=== PATIENT | female | born 1965 | race Caucasian/White ===

== ENCOUNTER → 2017-12-02 16:44 | Outpatient (CLI) | payer OTHER, SELFPAY ==
[2017-12-08 15:22] LABS: HPV Reflexed? NOT INDICATED
== END ==
PROVIDERS: Visit Provider Obstetrics & Gynecology
DX: Z12.4 Encounter for screening for malignant neoplasm of cervix (principal)
CPT/HCPCS: 88175; G0145

== ENCOUNTER → 2020-12-07 | Outpatient (CLI) | payer OTHER, SELFPAY ==
--- NOTE | 2020-12-07 | FLU_PTH ---
PATIENT: LISA DELAROSA LOC: [facility] U#:[id number] AGE/SX: 55/F ROOM: RE12/07/[address]: Dr. Dolores Guy MD : 1965 BED: DIS: 12/07/2020 SPEC #: [id number] RECD: 12/07/20 16:48 STATUS: STEPHANIE SHERIFF #: [id number] ARELIS: 12/07/20 00:[address]: Dolores Guy DEPT: CYTOLOGY RECD BY: Anthony Perez Tissues: A - Thyroid gland, NOS B - Thyroid gland, NOS Procedures: Special Stain Group II Surgery Specimen Level IV Cytospin Fluid HEADER OPERATION: US FNA of left thyroid PRE-OP DIAGNOSIS: Left thyroid nodule TISSUE SUBMITTED: A. Left thyroid fluid, B. Left thyroid slides DIAGNOSIS CYTOLOGY A. Fine needle aspiration, left thyroid fluid (cytospin and cell block): Negative for malignant cells. See comment. B. Fine needle aspiration, left thyroid nodule (smears): Adequate for evaluation. Negative, consistent with benign colloid nodule. AM:krystina 12/10/2020 COMMENT A. The specimen primarily contains blood with rare benign follicular cells. Immediate cytologic evaluation to determine adequacy is not applicable. CYTOLOGY STUDY Slides are reviewed. CYTOLOGY GROSS A. Received is 30 ml of cloudy brown fluid labeled with the patient's name and and designated per the requisition as left thyroid. Submitted for cytology preparation including cell block. B. Received are 6 smears labeled with the patient's name and designated per the requisition as left thyroid. Submitted for staining. / cc 12/07/20 TC:5 CPT: 10651, 54997, 89138
== END | disposition home or self-care (01) ==
PROVIDERS: Referring Provider Surgery; Visit Provider Surgery
DX: E04.1 Nontoxic single thyroid nodule (principal)
CPT/HCPCS: 88108; 88305; 88313

== ENCOUNTER → 2020-12-10 | Outpatient (CLI) | payer OTHER, SELFPAY | END | disposition home or self-care (01) | LOC: LABSPEC 07:48 | PROVIDERS: Visit Provider Surgery | DX: R69 Illness, unspecified (principal) ==

== ENCOUNTER 2021-07-12 15:32 | Observation (INO) | payer OTHER, SELFPAY ==
[2021-07-12] VITALS (11 sets, daily range): BP systolic 124–157; BP diastolic 74–90; PULSE 76–96; RESP 14–16; TEMP 36.1–37.1; O2SAT 90–98; BMI 31.6
--- NOTE | 2021-07-12 | THYROID_PTH ---
PATIENT: LISA DELAROSA LOC: [facility] U#:[id number] AGE/SX: 55/F [place]OM[place] [facility] RE07/12/[address]: Dr. Jg Zurita MD : 1965 BED: 1 DIS: 07/13/2021 SPEC #: [id number] RECD: 07/12/21 14:17 STATUS: STEPHANIE REMallory #: [id number] ARELIS: 07/12/21 00:[address]: Jg Zurita DEPT: SURGICAL PATHOLOGY RECD BY: Corin Grewal ENTERED: 07/12/21 15:15 SP TYPE: THYROID OTHR DR: Dr. Gordon Dumont MD Tissues: A - Thyroid gland, NOS B - Lymph node, NOS Procedures: Decalcification bone/plaque Frozen Section (charge) Surgery Specimen Level IV Surgery Specimen Level V HEADER OPERATION: Thyroid lobectomy PRE-OP DIAGNOSIS: Left thyroid nodule TISSUE SUBMITTED: A ? Left lobe of thyroid, FS, B ? Central compartment lymph node FROZEN SECTION DIAGNOSIS A. Left lobe of thyroid, lobectomy: Colloid nodule with fibrosis and calcification. DEVENDRA:krystina 07/12/2021 MICROSCOPIC DIAGNOSIS A. Left lobe of thyroid, lobectomy: Colloid nodule with cystic changes, fibrosis and calcification (4.3 cm in greatest dimension). Chronic lymphocytic thyroiditis. One benign lymph node. B. Central compartment lymph node, biopsy: One benign lymph node with reactive changes. DEVENDRA:krystina 07/16/2021 COMMENT Please make reference to previous specimen ([id number]) fine needle aspiration, left thyroid nodule with diagnosis of negative, consistent with benign colloid nodule. MICROSCOPIC DESCRIPTION Slides are reviewed. GROSS DESCRIPTION A - Received fresh for frozen section diagnosis labeled with the patient's name is a specimen designated left lobe thyroid. The specimen consists of a thyroid lobectomy specimen weighing 19.9 gm and measuring 4 x 4.5 x 2.2 cm. External surface is inked black and isthmic resection margin is inked yellow. Sections reveal a nodule occupying most of the specimen measuring 4.3 x 3 x 2 cm. Sections of this nodule reveal focal cystic changes, fibrosis and it cuts with gritty sensation consistent with focal calcification. A section from the thyroid nodule is submitted for frozen section diagnosis. The entire specimen is submitted in 15 cassettes as follows: 1 - frozen section, 2-15 - rest of the specimen (2?containing most superior inferior portion, 14 containing most inferior portion and 15 containing portion of thyroid lobe with isthmic resection margin). Sections are submitted after decalcification. B - Received in fixative is one container labeled with the patient's name and designated central compartment lymph node. The specimen consists of a piece of barrera soft tissue measuring 1 x 1 x 0.5 cm. The specimen is bisected and submitted entirely in one cassette. / DEVENDRA:krystina 07/15/2021 TC:5 CPT: 41231, 05588, 41311, 73136
[2021-07-12] MEDS: Lactated Ringers 1,000 ML 15 ML IV ×2 (11:17→15:00)
--- NOTE | 2021-07-12 12:12 | EKG12_ITS ---
Test Reason : PRE OP Blood Pressure : / mmHG Vent. Rate : 071 BPM Atrial Rate : 071 BPM P-R Int : 148 ms QRS Dur : 080 ms QT Int : 386 ms P-R-T Axes : 011 -15 015 degrees QTc Int : 419 ms Normal sinus rhythm Low voltage QRS (Precordial Leads) Confirmed by AKHIL KINGSLEY, SOLITARIO ([id number]), health editor JARRETT ROY ([id number]) on 07/17/2021 10:11:07 AM Referred By: Jg Zurita Confirmed By:SOLITARIO LANDAVERDE MD
[2021-07-12] MEDS: Cefazolin 2 GM in 0.9% Normal Saline 100 ML IV (13:18)
[2021-07-12] MEDS: BUPIVACAINE LIPOSOME/PF 20 ML VIAL OPERA.SITE (13:36)
--- NOTE | 2021-07-12 15:10 | PCM.OPRPT ---
Problems Associated Problem List Diagnoses (1) Thyroid disease: Report of Operation Date of Procedure: 07/12/21 Pre-Operative Diagnosis: Left thyroid nodule Post-Operative Diagnosis: Same Surgery/Procedure Performed:: Left thyroid lobectomy Surgeon: Jg Zurita quality engineer medical device: Magalis Hudson Type of Anesthesia: General Anesthesiologist: Arpan Sierra Specimen's removed: Left thyroid Drains: None Estimated Blood Loss (mL): < 25 cc Description of Procedure: Patient was brought into the operating room. Placed in the supine position. Under excellent general anesthetic towel was placed underneath the shoulder blades and neck was extended and sterilely prepped and draped in the usual fashion. Local was injected cervical incision was made. Electrocautery was used to create subplatysmal flaps. Gelpi retractor was placed inside the wound midline strap muscles were opened. I dissected the strap muscles off of the thyroid gland itself went to the superior pole vessels took these down with a harmonic dissector. I went to the middle thyroidal vein took this down with harmonic dissector and then went to the inferior thyroid vessels and took these down with harmonic dissector. I rotated the gland from a lateral to medial standpoint making sure I stayed very close to the gland itself identified the inferior and superior parathyroid gland and identified the recurrent laryngeal nerve. I took the gland off of Boo's ligament and then transected it on the right side of the thyroid gland. I sent it to pathology for frozen section which came back benign. She had a midline lymph node which I took out of the central compartment directly on top of the trachea. I irrigated out the wound I placed Floseal and Surgicel into the wound I had good pneumostasis. Midline strap muscles were brought together with a 2-0 Vicryl subplatysmal flaps were brought together with 3-0 Vicryl deep dermal stitches of 3-0 Vicryl then a running 4-0 Monocryl Dermabond was applied sterile dressings were applied and the patient tolerated the procedure well Admit VTE Documentation VTE Present on Admission: No VTE Mechan Device Prophylaxis: SCD's VTE Pharm Prophylaxis ordered?: No Reason prophylaxis not ordered:: Treatment Not Indicated
[2021-07-12] MEDS: 0.9% Normal Saline 1,000 ML 75 ML IV (22:04)
[2021-07-13 03:43] VITALS: BP 133/69; PULSE 94; RESP 16; TEMP 37; O2SAT 93
[2021-07-13] MEDS: Ibuprofen 400 MG Tablet 800 MG PO (06:58)
[2021-07-13 08:51] VITALS: BP 130/74; PULSE 93; RESP 18; TEMP 37.1; O2SAT 93
--- NOTE | 2021-07-13 11:00 | DCINST_ITS ---
Discharge Instructions Procedure General Surgery Diet Discharge Diet: Light diet - advance as tolerated (If you have questions about your diet instructions, please talk to your doctor.) Activity Discharge Activity: May Not Drive (for 1 week or while taking narcotic pain medicine.) May shower in (days): 1 Lifting Restrictions: 10 pounds Dressing / Incision Call your doctor if your incision/area has: Continuous Slow Oozing, Sudden Increased Bleeding, Increased Pain/ Swelling, Increased Redness and Foul Smelling Discharge Call your doctor if you observe: Fever of 101 or Higher Suture Line Care: Avoid Pulling/Pushing and Avoid Pinching/Bending Additional Dressing/Incision Instructions:: Change or remove dressing in 4 days. Leave steri-strips in place for 1 week. Follow Up Care Please Follow Up With: Diane Hwang PA-C When: Call office to schedule an appointment to be seen in about 10 days. Test Results: Test results from this visit will be discussed in further detail at your follow-up appointment, if applicable. Discharge Plan Admission Admit Date/Time: 07/12/21 15:32 Attending Provider: Jg Zurita Primary Care Provider: Gordon Dumont Discharge Orders/Prescriptions Prescriptions: New oxycodone-acetaminophen [Percocet] 5-325 mg tablet 1 tab PO Q4H PRN (Reason: pain) 5 Days Qty: 20 RF: 0 No Action Centrum Silver Women 8 mg iron-400 mcg-300 mcg Tablet 1 tab PO DAILY RF: 0 Referrals / Follow Up: Gordon Dumont MD [Primary Care Provider] - Diane Hwang PA-C [PHYSICIAN MEDICAL AFFAIRS SPECIALIST] -
== END 2021-07-13 11:27 | disposition home or self-care (01) ==
LOC: MS3 15:37
PROVIDERS: Admitting Provider Surgery; PCP Family Medicine; Referring Provider Surgery; Visit Provider Surgery
PROC: (CPT 60220; principal; 2021-07-12 12:45)
DX: E04.1 Nontoxic single thyroid nodule (principal); E11.9 Type 2 diabetes mellitus without complications; G25.81 Restless legs syndrome; R06.02 Shortness of breath
CPT/HCPCS: 60220; 00320; 87426; 88305; 88307; 88311; 88331; 93005; 96360; 96361; 99218; 99251; J7030; J7120; G0378; G0463; J2405

== ENCOUNTER → 2024-09-06 | Outpatient (CLI) | payer OTHER, SELFPAY ==
--- NOTE | 2024-09-06 07:21 | US_ITS ---
PROCEDURE: ABD LIMITED W/ ELASTOGRAPHY REASON FOR EXAM: [facility] COMPARISON: None. TECHNIQUE: Right upper quadrant abdominal ultrasound. Sammi ElastQ Imaging shear wave elastography for non-invasive assessment of liver tissue stiffness. Sammi EPIQ Elite. FINDINGS: LIVER: Size: Unremarkable Length: 16.7 cm Echotexture: Diffusely echogenic suggesting fatty infiltration Contour: Normal Lesions: None identified Elastography: EQI Med: 6.8 kPa EQI Med Robert: 1.5 m/s IQR/Med: 17 %* GALLBLADDER: Normal COMMON BILE DUCT: Normal measuring 6.3 mm . PANCREAS: Normal Visualized portions of the right kidney are unremarkable. No right upper quadrant ascites. US/ABD Limited w/ Elastography IMPRESSION: [id number] hepatic fibrosis. Fatty infiltration of the liver. Reference Values: SRU <1.37 m/s (5.7kPa): No to mild fibrosis 1.37 m/s - 2.2 m/s: Moderate to severe fibrosis >2.2 m/s (15kPa): Significant fibrosis / cirrhosis METAVIR Score F2 or higher: 1.34 m/s (5.7kPa) F3 or higher: 1.55 m/s (7.3kPa) F4: 1.80 m/s (10kPa) * If the IQR/Med is >30%, the variance in the measurements is a large and the a ccuracy of the measurement may be in question. Reading Location: [place] [id number]
== END | disposition home or self-care (01) ==
PROVIDERS: PCP Family Medicine; Referring Provider Physician Assistant; Visit Provider Physician Assistant
DX: K75.81 Nonalcoholic steatohepatitis (NASH) (principal)
CPT/HCPCS: 76705; 76981